=== PATIENT | female | born 1975 | race Caucasian/White ===

== ENCOUNTER 2017-08-30 18:11 | Emergency (ER) | payer OTHER ==
[~2017-08-30] VITALS: Ht 160 cm; Wt 54.4 kg
[~2017-08-30 18:11] MED LIST: ALEVE220 MG PO; DARVOCET-N 1001 EACH PO; NAPROSYN500 MG PO; NOHOMEMEDICATIONS; TRAMADOL 50 MG50 MG PO; ULTRAM 50MG TAB50 MG PO
[2017-08-30] MEDS ORDERED: NAPROSYN500 MG PO (20:27)
[2017-08-30] MEDS ORDERED: TRAMADOL 50 MG50 MG PO (20:27)
[2017-08-30 20:44] VITALS: BP 119/87
== END 2017-08-30 20:45 | disposition home or self-care (01) ==
LOC: ER 18:11
DX: M72.2 Plantar fascial fibromatosis (principal); F17.210 Nicotine dependence, cigarettes, uncomplicated; Z88.2 Allergy status to sulfonamides